=== PATIENT | female | born 1965 | race African-American/Black ===

== ENCOUNTER → 2016-06-10 10:08 | Outpatient (CLI) | payer OTHER ==
[2016-02-13 07:00] VITALS: BMI 25.6
[~2016-06-10 10:08] MED LIST: ESTRACE1 MG PO; PERCOCET 10/3251 TA1 PO; PERCOCET 5-3251 TAB PO
== END | disposition home or self-care (01) ==
LOC: D.RAD 10:08
DX: Z02.71 Encounter for disability determination (principal)

== ENCOUNTER 2016-10-05 02:25 | Emergency (ER) | payer MEDICAID ==
[2016-02-13 07:00] VITALS: BMI 25.6
[2016-10-05 03:08] LABS: BASOPHILS 0.1 % (0-2); EOSINOPHILS 0.1 % (0-7); HEMATOCRIT 36.2 % (36.0-48.0); HEMOGLOBIN 12.2 g/dL (12-16); IMMATURE GRANULOCYTES 0.1 % (0-5); LYMPHOCYTES 5.2 % (15-50); MCH 31.7 pg (26.0-34.0); MCHC 33.7 g/dL (31.0-37.0); MEAN PLATELET VOLUME 9.7 fL (7.4-10.4); NEUTROPHILS 89.5 % (40-80); PLATELET COUNT 180 10x3/uL (130-400); RBC 3.85 10x6/uL (4.00-5.40); RDW 13.8 % (11.5-14.5); WBC 7.9 10x3/uL (4.8-10.8)
[2016-10-05 03:22] LABS: ALBUMIN 3.7 g/dL (3.4-5.0); ANION GAP 14.8 mmol/L (8-16); BILIRUBIN - TOTAL 1.04 mg/dL (0.2-1.3); CALCIUM 9.2 mg/dL (8.5-10.1); CREATININE - SERUM 0.9 mg/dL (0.6-1.3); POTASSIUM - SERUM 3.8 mmol/L (3.5-5.1); PROTEIN - SERUM 7.4 g/dL (6.4-8.2)
[2016-10-05 03:25] LABS: HCG SERUM NEGATIVE (NEGATIVE)
[2016-10-05 06:11] LABS: APPEARANCE CLEAR (CLEAR); BILIRUBIN NEGATIVE (NEGATIVE); COLOR STRAW (YELLOW); GLUCOSE NEGATIVE (NEGATIVE); KETONE NEGATIVE (NEGATIVE); LEUKOCYTE ESTERASE NEGATIVE (NEGATIVE); NITRITE NEGATIVE (NEGATIVE); PROTEIN NEGATIVE (NEGATIVE); SPECIFIC GRAVITY 1.005 (1.005-1.020); UROBILINOGEN NORMAL (NORMAL)
[2016-10-05 06:12] LABS: EPITHELIAL CELLS 0-5 /hpf (0-5); RED CELLS - URINE 0-5 /hpf (0-5); WHITE CELLS - URINE 0-5 /hpf (0-5)
[2016-10-05 06:13] LABS: BACTERIA MANY /hpf (NONE SEEN)
== END 2016-10-05 09:34 | disposition home or self-care (01) ==
LOC: D.ER 02:25
PROVIDERS: Emergency Medicine
DX: R10.9 Unspecified abdominal pain (principal); F17.200 Nicotine dependence, unspecified, uncomplicated

== ENCOUNTER 2016-12-03 03:32 | Inpatient (IN) | payer MEDICAID ==
[2016-12-03] VITALS (14 sets, daily range): BP systolic 108–144; BP diastolic 59–83; BMI 27.6; BMI 27.5
[2016-12-03 04:06] LABS: APPEARANCE CLOUDY (CLEAR); BILIRUBIN NEGATIVE (NEGATIVE); COLOR YELLOW (YELLOW); GLUCOSE NEGATIVE (NEGATIVE); KETONE NEGATIVE (NEGATIVE); NITRITE NEGATIVE (NEGATIVE); PROTEIN 1+ mg/dL (NEGATIVE); UROBILINOGEN NORMAL (NORMAL)
[2016-12-03 04:06] LABS: BASOPHILS 0 % (0-2); EOSINOPHILS 0.5 % (0-7); HEMATOCRIT 35.6 % (36.0-48.0); HEMOGLOBIN 11.8 g/dL (12-16); IMMATURE GRANULOCYTES 0.2 % (0-5); LYMPHOCYTES 15.3 % (15-50); MCH 31.3 pg (26.0-34.0); MCHC 33.1 g/dL (31.0-37.0); MCV 94.4 fL (80.0-100.0); MEAN PLATELET VOLUME 9.5 fL (7.4-10.4); MONOCYTES 10.1 % (2-11); NEUTROPHILS 73.9 % (40-80); RBC 3.77 10x6/uL (4.00-5.40); RDW 13.6 % (11.5-14.5); WBC 4.1 10x3/uL (4.8-10.8)
[2016-12-03 04:07] LABS: BACTERIA MANY /hpf (NONE SEEN); EPITHELIAL CELLS 0-5 /hpf (0-5); RED CELLS - URINE 0-5 /hpf (0-5)
[2016-12-03 04:08] LABS: MUCUS <1+ /lpf (NONE SEEN)
[2016-12-03 04:08] LABS: PLATELET COUNT 241 10x3/uL (130-400)
[2016-12-03 04:25] LABS: ALBUMIN 3.5 g/dL (3.4-5.0); ALKALINE PHOSPHATASE 98 U/L (46-116); ALT (SGPT) 18 U/L (10-68); AMYLASE - SERUM 72 U/L (25-115); CALC OSMOLALITY 283 mosm/kg (275-300); CARBON DIOXIDE 26.9 mmol/L (21.0-32.0); CHLORIDE - SERUM 105 mmol/L (98-107); CREATININE - SERUM 0.8 mg/dL (0.6-1.3); GLUCOSE 130 mg/dL (74-106); LIPASE 64 U/L (73-393); MAGNESIUM - SERUM 1.8 mg/dL (1.8-2.4); POTASSIUM - SERUM 3.9 mmol/L (3.5-5.1); PROTEIN - SERUM 6.6 g/dL (6.4-8.2); SODIUM 142 mmol/L (136-145); UREA NITROGEN 11 mg/dL (7-18); eGFR NON AFRICAN AMERICAN 80 mL/min (90-120)
--- NOTE | 2016-12-03 07:45 | NUR ---
NEW ADMIT TO FLOOR FROM ER. ARRIVED VIA WHEELCHAIR WITH HOSPITAL STAFF. PT C/O ABD PAIN 10/10, PRN PAIN MEDICATION GIVEN ORDERED. BED IN LOWEST POSITION, SIDE RAILS UP X 2, CALL LIGHT WITHIN REACH.
[2016-12-03] MEDS ORDERED: CIPRO500 MG (07:51)
[2016-12-03] MEDS ORDERED: HYDROCODONE-APA1 TAB (07:51)
[2016-12-03] MEDS ORDERED: REMERON15 MG (07:51)
[2016-12-03] MEDS ORDERED: ONDANSETRON 8 MG (07:52)
[2016-12-03] MEDS ORDERED: NORCO 7.5/325 T1 TA1 (07:52)
[2016-12-03 11:11] LABS: UDS - AMPHET NEGATIVE QUAL (NEGATIVE); UDS - BARB NEGATIVE QUAL (NEGATIVE); UDS - BENZO NEGATIVE QUAL (NEGATIVE); UDS - COCAINE NEGATIVE QUAL (NEGATIVE); UDS - OPIATE NEGATIVE QUAL (NEGATIVE); UDS - PCP NEGATIVE QUAL (NEGATIVE); UDS - THC POSITIVE QUAL (NEGATIVE)
--- NOTE | 2016-12-03 11:45 | NUR ---
PT LEFT FLOOR WITH OR. PRE-OP COMPLETE.
--- NOTE | 2016-12-03 16:20 | NUR ---
PT RETURNED TO FLOOR FROM RECOVERY ROOM. C/O ABD 12/22. O2 VIA OXIMIZER AT 5L, O2 SAT 96%, B/P 136/70, PULSE 56 BPM, TEMP 97.5F, RESPIRATIONS 18. R HAND IV PATENT, INFUSING, DRSG C/D/I. ABD LAP SITES X 3 WITH MIDLINE INCISION DRSG.
--- NOTE | 2016-12-03 16:59 | NUR ---
B/L SCD'S IN PLACE
--- NOTE | 2016-12-03 17:33 | NUR ---
MANAGER PHP INITIATED ORDERED. PT VEBALIZED UNDERSTANDING OF USE.
--- NOTE | 2016-12-03 18:55 | NUR ---
PT C/O L SIDED CHEST PAIN 12/22. RAPID RESPONSE CALLED. VITALS FOLLOWS B/P 135/78, PULSE 97 BPM, O2 100% 3.5 L O2 VIA OXYMIZER.
--- NOTE | 2016-12-03 19:10 | NUR ---
CALLED DR. FUNK REGARDING RAPID RESPONSE. ORDERS RECEIVED.
--- NOTE | 2016-12-03 20:37 | NUR ---
PATIENT IS RESTING QUIETLY WITH EYES CLOSED. NO SIGNS OF DISTRESS NOTED. AROUSES EASILY TO VOCAL STIMULI. PATIENT DENIES CHEST PAIN, AND ANY OTHER PAIN AT THIS TIME. NO SIGNS OF DISTRESS NOTED. PATIENT IS RECIEVING OXYGEN VIA OXYMIZER AT 3.5L/MIN. OXYGEN SATURATION 98%. CHANGED HER TO A NASAL CANNULA, DECREASED RATE TO 2.5L/MIN. CONTINUOUS PULSE OXIMETER ON, WILL CONTINUE TO MONITOR. SCDS TO BILATERAL LEGS. BED IN LOWEST POSITION, CALL LIGHT IN REACH. BED RAILS UP X'S 2. PATIENT STATED SHE WANTS TO GO TO SLEEP, SHE DENIES NEEDS AT THIS TIME. SHE IS VERY PLEASENT AND COOPERATIVE.
[2016-12-03 20:57] LABS: HEMATOCRIT 33.9 % (36.0-48.0); HEMOGLOBIN 11.3 g/dL (12-16); MCH 31.4 pg (26.0-34.0); MCHC 33.3 g/dL (31.0-37.0); MCV 94.2 fL (80.0-100.0); MEAN PLATELET VOLUME 9.7 fL (7.4-10.4); PLATELET COUNT 260 10x3/uL (130-400); RDW 13.8 % (11.5-14.5)
[2016-12-03 21:00] LABS: CKMB 0.4 U/L (0.0-3.6); CREATINE KINASE 112 UL (21-215); WBC 2.9 10x3/uL (4.8-10.8)
[2016-12-03 21:01] LABS: TROPONIN-I < 0.017 ng/mL (0.000-0.060)
[2016-12-03 21:20] LABS: LYMPHOCYTES 15 % (15-50); MONOCYTES 3 % (2-11); NEUTROPHILS 58 % (40-80); PLATELET ESTIMATE NORMAL
[2016-12-04 00:40] VITALS: BP 133/80
--- NOTE | 2016-12-04 00:45 | NUR ---
TEMP 99.9 F. ENCOURAGED PATIENT TO USE THE INCENTIVE SPIROMETER. PATIENT VERBALIZED UNDERSTANDING.
[2016-12-04 04:56] VITALS: BP 142/77
[2016-12-04 05:01] LABS: BASOPHILS 0 % (0-2); EOSINOPHILS 0 % (0-7); HEMATOCRIT 33.3 % (36.0-48.0); HEMOGLOBIN 11.1 g/dL (12-16); IMMATURE GRANULOCYTES 0.2 % (0-5); LYMPHOCYTES 7.9 % (15-50); MCH 31.3 pg (26.0-34.0); MCHC 33.3 g/dL (31.0-37.0); MCV 93.8 fL (80.0-100.0); MEAN PLATELET VOLUME 9.7 fL (7.4-10.4); MONOCYTES 6.7 % (2-11); NEUTROPHILS 85.2 % (40-80); PLATELET COUNT 278 10x3/uL (130-400); RBC 3.55 10x6/uL (4.00-5.40); RDW 13.7 % (11.5-14.5)
[2016-12-04 05:34] LABS: ALBUMIN 2.7 g/dL (3.4-5.0); ALKALINE PHOSPHATASE 89 U/L (46-116); ALT (SGPT) 17 U/L (10-68); BILIRUBIN - TOTAL 0.48 mg/dL (0.2-1.3); CALC OSMOLALITY 270 mosm/kg (275-300); CALCIUM 8.5 mg/dL (8.5-10.1); CARBON DIOXIDE 24.8 mmol/L (21.0-32.0); CHLORIDE - SERUM 100 mmol/L (98-107); CKMB 0.2 U/L (0.0-3.6); CREATINE KINASE 167 UL (21-215); CREATININE - SERUM 0.8 mg/dL (0.6-1.3); GLUCOSE 139 mg/dL (74-106); MAGNESIUM - SERUM 1.5 mg/dL (1.8-2.4); PHOSPHOROUS 3.4 mg/dL (2.5-4.9); POTASSIUM - SERUM 4.1 mmol/L (3.5-5.1); PROTEIN - SERUM 6.5 g/dL (6.4-8.2); SODIUM 135 mmol/L (136-145); TROPONIN-I < 0.017 ng/mL (0.000-0.060); UREA NITROGEN 9 mg/dL (7-18); eGFR NON AFRICAN AMERICAN 80 mL/min (90-120)
--- NOTE | 2016-12-04 07:00 | NUR ---
REPORT RECIEVED, ASSUMED CARE OF PT. RESTING WITH EYES SHUT, EASILY AROUSED. R HAND IV INFUSING ORDERED, PATENT, DRSG CLEAN, DRY AND INTACT, BASE LOADER ORDERED. LAPSITES X 3 WITH BANDAGES C/D/I, MIDLINE DRSG IN PLACE, C/D/I. NO COMPLAINTS AT THIS TIME. BED IN LOWEST POSITION, SIDE RAILS UP X 2, CALL LIGHT WITHIN REACH.
[2016-12-04 09:39] VITALS: BP 129/79
[2016-12-04 13:06] VITALS: BP 117/65
[2016-12-04 16:59] VITALS: BP 96/60
--- NOTE | 2016-12-04 18:02 | NUR ---
MIDLINE DRSG WET WITH MINIMAL BLOODY DISCHARGE AND FROM SHOWERING. DRSG CHANGED. C/D/I.
[2016-12-04 20:00] VITALS: BP 132/78
[2016-12-05 00:08] VITALS: BP 111/61
[2016-12-05 04:00] VITALS: BP 136/93
--- NOTE | 2016-12-05 07:05 | NUR ---
PT REC'D FROM [facility]. RESTING IN BED WITH EYES CLOSED. EASILY AROUSED. AAOX4. RATING CURRENT PAIN IN ABD 09/21. FLOATING LABOR GANG SUPERVISOR BUTTON PRESSED FOR PT AT THIS TIME. BOWEL SOUNDS HYPOACTIVE X4 QUADS. X3 LAP SITES COVERED WITH BANDAIDS THAT ARE CDI. 4X4 DRESSING UNDER UMBILICUS CDI WELL. PIV TO R HAND X2 BOTH FREE OF REDNESS AND SWELLING. BED LOW, CALL LIGHT IN REACH, DENIES NEEDS. CPOC.
[2016-12-05 08:03] VITALS: BP 119/62
[2016-12-05 08:06] LABS: BASOPHILS 0 % (0-2); EOSINOPHILS 0.9 % (0-7); HEMATOCRIT 32.9 % (36.0-48.0); HEMOGLOBIN 10.9 g/dL (12-16); IMMATURE GRANULOCYTES 0.2 % (0-5); LYMPHOCYTES 6.7 % (15-50); MCH 31.6 pg (26.0-34.0); MCHC 33.1 g/dL (31.0-37.0); MCV 95.4 fL (80.0-100.0); MEAN PLATELET VOLUME 9.6 fL (7.4-10.4); MONOCYTES 8.1 % (2-11); NEUTROPHILS 84.1 % (40-80); PLATELET COUNT 246 10x3/uL (130-400); RBC 3.45 10x6/uL (4.00-5.40); RDW 13.7 % (11.5-14.5)
[2016-12-05 08:07] LABS: WBC 6.4 10x3/uL (4.8-10.8)
[2016-12-05 08:19] LABS: ALBUMIN 2.5 g/dL (3.4-5.0); ANION GAP 14.1 mmol/L (8-16); BILIRUBIN - TOTAL 0.47 mg/dL (0.2-1.3); CALCIUM 8.5 mg/dL (8.5-10.1); CARBON DIOXIDE 23.7 mmol/L (21.0-32.0); CREATININE - SERUM 0.9 mg/dL (0.6-1.3); POTASSIUM - SERUM 3.8 mmol/L (3.5-5.1); PROTEIN - SERUM 5.8 g/dL (6.4-8.2)
[2016-12-05 12:42] VITALS: BP 136/83
[2016-12-05 16:16] VITALS: BP 130/73
--- NOTE | 2016-12-05 16:45 | NUR ---
PATIENT SITTING UP IN BED WITH IV INTACT. NO COMPLAINTS AT THIS TIME. CALL LIGHTW ITHIN REACH.
[2016-12-05 18:36] VITALS: BP 128/70
--- NOTE | 2016-12-05 20:21 | NUR ---
PATIENT RESTING IN BED WITH NO VISIBLE SIGNS OF DISTRESS. MEDS ADMINISTERED AND ASSESSMENT COMPLETE. BROUGHT PT BROTH AND VIVIANA PER HER REQUEST. PT DENIES OTHER NEEDS AT THIS TIME. BED IN LOWEST POSITION AND CALL LIGHT WITHIN REACH. ENCOURAGED THE PT TO CALL IF SHE HAS OTHER NEEDS.
[2016-12-06] VITALS: BP 127/70
[2016-12-06 04:00] VITALS: BP 136/82
[2016-12-06 05:03] LABS: BASOPHILS 0.2 % (0-2); EOSINOPHILS 1.2 % (0-7); HEMATOCRIT 28.4 % (36.0-48.0); HEMOGLOBIN 9.6 g/dL (12-16); IMMATURE GRANULOCYTES 0.2 % (0-5); LYMPHOCYTES 8.8 % (15-50); MCH 31.7 pg (26.0-34.0); MCHC 33.8 g/dL (31.0-37.0); MCV 93.7 fL (80.0-100.0); MEAN PLATELET VOLUME 9.6 fL (7.4-10.4); MONOCYTES 6.3 % (2-11); NEUTROPHILS 83.3 % (40-80); PLATELET COUNT 262 10x3/uL (130-400); RBC 3.03 10x6/uL (4.00-5.40); RDW 13.6 % (11.5-14.5)
[2016-12-06 05:17] LABS: ALBUMIN 2.2 g/dL (3.4-5.0); ALKALINE PHOSPHATASE 69 U/L (46-116); ALT (SGPT) 12 U/L (10-68); CALCIUM 8.5 mg/dL (8.5-10.1); CARBON DIOXIDE 25.8 mmol/L (21.0-32.0); CHLORIDE - SERUM 105 mmol/L (98-107); CREATININE - SERUM 0.8 mg/dL (0.6-1.3); GLUCOSE 115 mg/dL (74-106); POTASSIUM - SERUM 3.4 mmol/L (3.5-5.1); PROTEIN - SERUM 5.7 g/dL (6.4-8.2); SODIUM 137 mmol/L (136-145); eGFR NON AFRICAN AMERICAN 80 mL/min (90-120)
[2016-12-06 05:20] LABS: CALC OSMOLALITY 272 mosm/kg (275-300); UREA NITROGEN 7 mg/dL (7-18)
[2016-12-06 08:35] VITALS: BP 139/77
[2016-12-06 12:51] VITALS: BP 146/78
[2016-12-06 16:06] VITALS: BP 146/71
[2016-12-06 20:00] VITALS: BP 112/68
[2016-12-07 04:00] VITALS: BP 136/76
[2016-12-07 05:15] LABS: BASOPHILS 0.2 % (0-2); EOSINOPHILS 1.6 % (0-7); HEMATOCRIT 29.3 % (36.0-48.0); HEMOGLOBIN 10.1 g/dL (12-16); IMMATURE GRANULOCYTES 0.2 % (0-5); LYMPHOCYTES 12.9 % (15-50); MCH 31.9 pg (26.0-34.0); MCHC 34.5 g/dL (31.0-37.0); MCV 92.4 fL (80.0-100.0); MEAN PLATELET VOLUME 9.8 fL (7.4-10.4); MONOCYTES 10.1 % (2-11); PLATELET COUNT 298 10x3/uL (130-400); RBC 3.17 10x6/uL (4.00-5.40); RDW 13.2 % (11.5-14.5); WBC 4.3 10x3/uL (4.8-10.8)
[2016-12-07 05:45] LABS: ALBUMIN 2.5 g/dL (3.4-5.0); ALKALINE PHOSPHATASE 78 U/L (46-116); ALT (SGPT) 13 U/L (10-68); CALC OSMOLALITY 275 mosm/kg (275-300); CALCIUM 8.8 mg/dL (8.5-10.1); CARBON DIOXIDE 24.2 mmol/L (21.0-32.0); CHLORIDE - SERUM 103 mmol/L (98-107); CREATININE - SERUM 0.8 mg/dL (0.6-1.3); GLUCOSE 112 mg/dL (74-106); MAGNESIUM - SERUM 1.6 mg/dL (1.8-2.4); POTASSIUM - SERUM 3.5 mmol/L (3.5-5.1); PROTEIN - SERUM 5.8 g/dL (6.4-8.2); SODIUM 139 mmol/L (136-145); eGFR NON AFRICAN AMERICAN 80 mL/min (90-120)
[2016-12-07 05:47] LABS: UREA NITROGEN 4 mg/dL (7-18)
--- NOTE | 2016-12-07 07:45 | NUR ---
ASSESSSMENT PER FLOW SHEET.PT WITHOUT DISTRESS.LAP SITES 4 TO ABD CDI.WITHOUT NAUSEA.DENIES NEEDS.DOCUMENTATION NURSE FOR PAIN.MONITOR FOR NEEDS.CALL LIGHT IN REACG
[2016-12-07 08:57] VITALS: BP 137/77
[2016-12-07 12:56] VITALS: BP 144/78
--- NOTE | 2016-12-07 13:55 | NUR ---
Patient Name: DREA PRATT Admission Status: ER Accout number: [id number] Admission Date: 12-03-2016 : 1965 Admission Diagnosis:INTESTINAL ADHESIONS W OBST (POSTPROCEDURAL) (POSTINFEC Attending: LAYLA FUNK Current LOS: 4 Anticipated DC Date: Planned Disposition: Home [place] Discharge Planning Comments: CM SPOKE WITH PATIENT TO ASSESS DISHCARGE PLANNING NEEDS. PATIENT STATES THAT SHE LIVES INDEPENDENTLY WITH HER MOTHER (MIKE) WHO WILL BE THE ONE TO DRIVE HER HOME. SHE STATED THAT SHE HAS ONE STEP TO ENETER IN HER HOME AND HER HOME IS SAFE TO RETURN TOO. SHE DENIES ANY HH NEEDS OR DME. CM WILL CONTINUE TO FOLLOW AND ASSIST WITH DISHCARGE PLANNING NEEDS PCP: [facility] PRATT (MOTHER) [phone] [place] Worker: Nati Cano * Is the patient Alert and Oriented? Yes 0 * How many steps to enter\exit or inside your home? 1 0 * PCP [facility] 0 * Pharmacy [facility] 0 * Preadmission Environment Home with Family 0 * ADLs Independent 0 * List name and contact numbers for known caregivers / representatives who currently or will assist patient after discharge: MIKE (MOTHER) [phone] 0 * Community resources currently utilized None 0 * Additional services required to return to the preadmission environment? No 0 * Can the patient safely return to the preadmission environment? Yes 0 * Has this patient been hospitalized within the prior 30 days at any hospital? No 0 Grand Total: 0
--- NOTE | 2016-12-07 16:09 | NUR ---
FEELING BETTER,BUT STILL COMPLAINS OF CONSTIPATION AND GAS. INSTRUCTED AMBULATION
--- NOTE | 2016-12-07 16:25 | NUR ---
AMBULAED AROUND UNIT X1,TOLERATED WELL. STILL COMPLAINS OF BLOATING. PRUNE JUICE COCKTAIL TO PT.
[2016-12-07 16:53] VITALS: BP 152/83
--- NOTE | 2016-12-07 17:22 | NUR ---
ANXIETY MEDS ORDERED FOR ANXIETY ATTACK.PT VERY ANXIOUS AND IS CRYING.
[2016-12-07 20:00] VITALS: BP 149/84
--- NOTE | 2016-12-07 20:17 | NUR ---
PATIENT RESTING IN BED WITH 8/10 PAIN. ADMINISTERED MEDS PER ORDERS AND COMPLETED ASSESSMENT. BROUGHT PT JUICE PER HER REQUEST. PATIENT DENIES OTHER NEEDS AT THIS TIME. BED IN LOWEST POSITION AND CALL LIGHT WITHIN REACH. ENCOURAGED THE PATIENT TO CALL IF SHE HAS NEES.
--- NOTE | 2016-12-07 23:21 | NUR ---
PT STATED SHE IS STILL UNABLE TO EAT SOLID FOODS WITHOUT FEELING ABDOMINAL PAIN. PT ALSO STATED THAT SHE STILL HAS BEEN UNABLE TO HAVE A BM.
--- NOTE | 2016-12-08 00:45 | NUR ---
PATIENT VOMITED APROX 400ML
[2016-12-08 04:00] VITALS: BP 146/86
--- NOTE | 2016-12-08 07:30 | NUR ---
A&O, DENIES NEEDS, NO DISTRESS NOTED, CALL LIGHT IN REACH, WILL CONTINUE TO MONITOR
--- NOTE | 2016-12-08 07:52 | HP ---
PATIENT: DREA PRATT MEDICAL RECORD: [id number] ACCOUNT: [id number] LOCATION:D.[id number] : [birth year] ADMISSION DATE: 12/03/16 HISTORY AND PHYSICAL EXAMINATION HISTORY OF PRESENT ILLNESS: A 51-year-old -[place] female presented to the Emergency Room with abdominal pain, nausea, and vomiting for a day and half. MEDICATIONS: No current medications. PAST MEDICAL HISTORY: Significant for total abdominal hysterectomy, January 2016, Dr. Brunson, [facility] for cervical cancer; also history of femur fracture, open reduction internal fixation. ALLERGIES: REPORTED TO [facility]. REVIEW OF SYSTEMS: CONSTITUTIONAL: Decreased appetite with acute onset of symptoms. No known change in weight. HEENT: No cephalgia, visual changes, tinnitus, epistaxis, or dysphagia. CARDIOVASCULAR: Denies chest pain. Denies palpitations. PULMONARY: Denies hemoptysis. Denies night sweats. GASTROINTESTINAL: Denies hematemesis, hematochezia, or melena. Does admit to diffuse abdominal pain symptoms as above, had one episode of vomiting. GENITOURINARY: Pain and burning with urination. MUSCULOSKELETAL: No acute changes. ENDOCRINE: Denies polyuria, polydipsia, or polyphagia. PHYSICAL EXAMINATION: VITAL SIGNS: Temperature 97.7, blood pressure is 143/92, heart rate 92, respirations 17, O2 sat is 96% room air. GENERAL: Alert, oriented, mild distress secondary to above. HEENT: Head: Normocephalic, atraumatic. Eyes: Pupils are equally round and reactive to light and accommodation. Extraocular muscles intact. Conjunctiva was not injected. Ears: Canals patent. TMs are intact. Nose: Nares are patent without drainage. Throat: No erythema. No exudates. NECK: Supple. No lymphadenopathy. No JVD. HEART: Regular rate and rhythm. No S3 or S4. No rub. LUNGS: Clear to auscultation bilaterally. Breathing is nonlabored. ABDOMEN: Mild distention. Diffuse tenderness. No rebound. No guarding. No palpable mass. EXTREMITIES: Present times 4. No edema. NEUROLOGIC: No focal deficits. SKIN: Warm and dry. No rash. RADIOLOGIC DATA: CT preliminary, small bowel obstruction. The patient had a CT in the ER on 10/05/2016, which showed unusual course of small bowel in the pelvis suggestive of adhesions without obstruction at that time. ASSESSMENT AND PLAN: 1. Small bowel obstruction likely secondary to adhesions from previous hysterectomy. Surgery consulted. The patient is n.p.o. 2. Urinary tract infection. Urine culture pending. Empiric Rocephin started in the Emergency Room. Supportive care. HISTORY AND PHYSICAL [id number] DREA PRATT TRANSINT:[id number] Voice Confirmation ID: [id number] DOCUMENT ID: [id number] LAYLA FUNK DO at 0752 CC: [id number] DICTATION DATE: 12/03/16 0746 B2B ACCOUNT EXECUTIVE: 12/03/16 1145 ADM IN [id number] [place] [address]
[2016-12-08 08:29] VITALS: BP 121/69
[2016-12-08 11:30] VITALS: BP 124/66
--- NOTE | 2016-12-08 12:25 | NUR ---
NUTRITION F/U CHART REVIEWED. REG DIET BUT NO PO INTAKE @ BREAKFAST. MAY BENEFIT FROM PROCALAMINE AND INTRALIPIDS IF UNABLE TO TOLERATE PO IN 24 [address] FOLLOWING
--- NOTE | 2016-12-08 14:30 | NUR ---
REPORT RECIEVED ASSUMED CARE. PATIENT IN BED WITH EYES CLOSED RESTING QUIETLY AT THIS TIME. IV INTACT. CALL LIGHT WITHIN REACH.
--- NOTE | 2016-12-08 15:05 | NUR ---
PATIENT UP AMBULATING IN CANO.
[2016-12-08 16:27] VITALS: BP 128/66
--- NOTE | 2016-12-08 18:45 | NUR ---
PATIENT IN BED WITH IV INTACT. NO COMPLAINTS CALL LIGHT WITHIN REACH.
--- NOTE | 2016-12-08 20:50 | NUR ---
PATIENT RESTING IN BED AND REQUESTED PAIN MEDS WHEN DUE. PATIENT DENIES OTHER NEEDS AT THIS TIME. BED IN LOWEST POSITION AND CALL LIGHT WITHIN REACH. ENCOURAGED THE PATIENT TO CALL IF SHE HAS NEEDS.
[2016-12-09] VITALS: BP 142/78
[2016-12-09 04:00] VITALS: BP 122/71
[2016-12-09 05:10] LABS: BASOPHILS 0.2 % (0-2); EOSINOPHILS 1.9 % (0-7); HEMATOCRIT 30.9 % (36.0-48.0); HEMOGLOBIN 10.6 g/dL (12-16); IMMATURE GRANULOCYTES 0.6 % (0-5); LYMPHOCYTES 13.8 % (15-50); MCH 31.6 pg (26.0-34.0); MCHC 34.3 g/dL (31.0-37.0); MCV 92.2 fL (80.0-100.0); MEAN PLATELET VOLUME 9.5 fL (7.4-10.4); MONOCYTES 10.7 % (2-11); NEUTROPHILS 72.8 % (40-80); PLATELET COUNT 314 10x3/uL (130-400); RBC 3.35 10x6/uL (4.00-5.40); RDW 13.2 % (11.5-14.5); WBC 5.1 10x3/uL (4.8-10.8)
[2016-12-09 05:44] LABS: ALBUMIN 2.4 g/dL (3.4-5.0); ALKALINE PHOSPHATASE 70 U/L (46-116); ALT (SGPT) 14 U/L (10-68); CALCIUM 8.7 mg/dL (8.5-10.1); CARBON DIOXIDE 27.1 mmol/L (21.0-32.0); CHLORIDE - SERUM 101 mmol/L (98-107); CREATININE - SERUM 0.7 mg/dL (0.6-1.3); GLUCOSE 122 mg/dL (74-106); MAGNESIUM - SERUM 1.8 mg/dL (1.8-2.4); PHOSPHOROUS 3.3 mg/dL (2.5-4.9); POTASSIUM - SERUM 3.3 mmol/L (3.5-5.1); PROTEIN - SERUM 6.1 g/dL (6.4-8.2); SODIUM 136 mmol/L (136-145); eGFR NON AFRICAN AMERICAN > 90 mL/min (90-120)
[2016-12-09 05:45] LABS: CALC OSMOLALITY 270 mosm/kg (275-300); UREA NITROGEN 6 mg/dL (7-18)
--- NOTE | 2016-12-09 07:45 | NUR ---
PT RESTING IN BED, NO COMPLAINTS AT THIS TIME. IV INFUSING ORDERED. NO SIGNS OF ACUTE DISTRESS.
[2016-12-09 07:55] VITALS: BP 108/67
[2016-12-09 12:19] VITALS: BP 153/75
[2016-12-09 15:59] VITALS: BP 125/78
[2016-12-09 20:00] VITALS: BP 152/81
--- NOTE | 2016-12-09 20:02 | NUR ---
AWAKE,ALERT.DILAUDID GIVEN IV FOR ABD PAIN 09/21. YAZMIN INTACT TO ABD INCISION WIHTOUT DRAINAGE NOTED. CL IN REACH.
[2016-12-10] VITALS: BP 120/83
--- NOTE | 2016-12-10 01:50 | NUR ---
RESTING QUIETLY. NO DISTRESS NOTED.
--- NOTE | 2016-12-10 02:00 | NUR ---
PT IN BED WITH NO DISTRESS. RESPIRATIONS EVEN AND UNLABORED. SIDE RAILS X 2. BED IS LOW. CALL LIGHT IS IN REACH.
[2016-12-10 04:00] VITALS: BP 138/86
[2016-12-10 05:44] LABS: BASOPHILS 0.2 % (0-2); EOSINOPHILS 1.3 % (0-7); HEMATOCRIT 30.5 % (36.0-48.0); HEMOGLOBIN 10.3 g/dL (12-16); IMMATURE GRANULOCYTES 0.8 % (0-5); LYMPHOCYTES 14.9 % (15-50); MCH 31.3 pg (26.0-34.0); MCHC 33.8 g/dL (31.0-37.0); MCV 92.7 fL (80.0-100.0); MEAN PLATELET VOLUME 9.8 fL (7.4-10.4); MONOCYTES 12.8 % (2-11); PLATELET COUNT 346 10x3/uL (130-400); RBC 3.29 10x6/uL (4.00-5.40); RDW 13.1 % (11.5-14.5); WBC 5.3 10x3/uL (4.8-10.8)
[2016-12-10 05:47] LABS: CALC OSMOLALITY 273 mosm/kg (275-300); CALCIUM 8.6 mg/dL (8.5-10.1); CARBON DIOXIDE 26.4 mmol/L (21.0-32.0); CHLORIDE - SERUM 101 mmol/L (98-107); CREATININE - SERUM 0.7 mg/dL (0.6-1.3); GLUCOSE 118 mg/dL (74-106); MAGNESIUM - SERUM 1.9 mg/dL (1.8-2.4); SODIUM 138 mmol/L (136-145); UREA NITROGEN 5 mg/dL (7-18); eGFR NON AFRICAN AMERICAN > 90 mL/min (90-120)
[2016-12-10 05:51] LABS: POTASSIUM - SERUM 4.2 mmol/L (3.5-5.1)
--- NOTE | 2016-12-10 06:00 | NUR ---
AROUSES EASILY. NO COMPLAITNS. CL IN REACH
--- NOTE | 2016-12-10 07:00 | NUR ---
PATIENT IN BED WITH EYES CLOSED RESTING QUETLY AT THIS TIME. IV INTACT. CALL LIGHT WITHIN REACH.
[2016-12-10] MEDS ORDERED: HYDROCODON-ACE1 EAC7 PO (07:38)
[2016-12-10 07:57] VITALS: BP 137/87
--- NOTE | 2016-12-10 08:00 | NUR ---
ASSESSMENT COMPLETE, VS STABLE. IV INTACT. NO COMPLAINTS. PATIENT UP TO AMBULATE AT THIS TIME. CALL LIGHT WITHIN REACH.
--- NOTE | 2016-12-10 10:00 | NUR ---
PATIENT RECIEVED DISCHARGE INSTRUCTIONS. VERBALIZED UNDERSTANDING. NO QUESTIONS AT THIS TIME. IV REMOVED WITH CATH TIP INTACT. PRESCRIPTION GIVEN TO PATIENT. NO QUESTIONS AT THIS TIME.
--- NOTE | 2016-12-10 10:20 | NUR ---
PATIENT AMBULATED OUT OF HOSPITAL WITH FAMILY AND PERSONAL BELONGINGS TO PRIVATE VEHICLE. REFUSED WC AT THIS TIME.
--- NOTE | 2016-12-10 18:04 | DS ---
PATIENT:DREA PRATT :65 MEDICAL RECORD: [id number] DISCHARGE SUMMARY ADMISSION DATE: 12/03/16 DISCHARGE DATE: 12/10/16 DATE OF ADMISSION: 12/03/2016 DATE OF DISCHARGE: 12/10/2016 ADMISSION DIAGNOSES: Small-bowel obstruction, urinary tract infection, prior history of cervical cancer. DISCHARGE DIAGNOSES: Small-bowel obstruction, resolved; small bowel resection; adhesiolysis. CONSULTS: Dr. Martinez, general surgery. HOSPITAL COURSE: The patient was admitted to the Emergency Room with abdominal pain and distention. CT showed small-bowel obstruction. The patient was taken to surgery with a prior hysterectomy secondary to cervical cancer, had extensive adhesions, required resection of small bowel and adhesiolysis. The patient had a persistent ileus. He is now having bowel movements, passing gas, anxious to go home. The patient is tolerating regular diet, ambulating independently and has had bowel movements. He is discharged home in significantly improved condition. PHYSICAL EXAMINATION: VITAL SIGNS ON DISCHARGE: Temp 98.8, blood pressure 138/86, heart rate 89, respirations 19, O2 sats 99% on room air. GENERAL: Alert, oriented, no acute distress. HEART: Regular rate and rhythm. LUNGS: Clear. ABDOMEN: Soft, bowel sounds are positive. EXTREMITIES: Present times 4, no edema. NEUROLOGIC: Intact. SKIN: Warm and dry. No rash. LABORATORY DATA: CBC on discharge, white count 5.3, hemoglobin 10.3, hematocrit 30.5, platelets 346. Chemistry; sodium 138, potassium 4.2, chloride 101, bicarb 26.4, phosphorus is 4.0. Magnesium 1.9. The patient will follow up with me in the clinic in 2 weeks. Follow up with Dr. Martinez, surgery, as scheduled. Diet as tolerated, increase activity. Weaning off pain medication just will slow gastrointestinal motility. TRANSINT:[id number] Voice Confirmation ID: [id number] DOCUMENT ID: [id number] LAYLA FUNK DO at 1804 CC: [id number] DICTATION DATE: 12/10/16 0744 PIPE FITTER FIRE SPRINKLER SYSTEMS: 12/10/16 1324 DIS IN 12/10/16 [place] [address]
--- NOTE | 2016-12-11 10:30 | OP ---
PATIENT NAME: DREA PRATT MEDICAL RECORD: [id number] :65 LOCATION:D.[facility] ADMISSION DATE:12/03/16 SURGEON: RAJIV COLINDRES MD DATE OF OPERATION: 12/03/2016 PREOPERATIVE DIAGNOSES: 1. Acute small bowel obstruction. 2. History of cervical cancer, status post recent total abdominal hysterectomy. 3. Gastroesophageal reflux disease. 4. Tobacco dependence syndrome. POSTOPERATIVE DIAGNOSES: 1. Acute small bowel obstruction. 2. History of cervical cancer, status post recent total abdominal hysterectomy. 3. Gastroesophageal reflux disease. 4. Tobacco dependence syndrome. PROCEDURES: 1. Laparoscopic lysis of adhesions. 2. Small bowel resection. SURGEON: Rajiv Colindres MD REPORT OF PROCEDURE: The patient's abdomen was prepped and draped in sterile fashion. A Veress needle was inserted in the left upper quadrant and the abdomen was insufflated. A 5-mm trocar was then placed in the left lateral abdomen under direct visualization. I could see the Veress needle and there was no sign of any injury to bowel or surrounding structures. There were noted to be significant loops of distended small bowel present. A 5-mm trocar was placed in the midline just above the umbilicus and a final 5-mm trocar was placed in the left lower quadrant. As we looked into the pelvis, there was noted to be dense adhesions present. As we began our dissection, these were not your typical postoperative adhesions. These were very thick and inflammatory type adhesions. There was also noted to be ascitic fluid in the pelvis along with some mucousy material. There were some cystic lesions present around the small bowel in this area. We eventually were able to dissect the small bowel free from its pelvic attachments. In order to do this, we had to cut through some of this firm tissue that was coming up against the pelvic wall. There was no full thickness injury to the small bowel during this portion of the case, but this section of small bowel was beaten up pretty well with the dissection. The remainder of the small bowel and the abdomen looked normal. I inspected the pelvis once all the adhesions were gone, and the rectum appeared to be normal with no signs of any compression or lesions. There was no sign of any residual tissue from the uterus or ovaries visible. At this point, an opening was made in the midline just below the umbilicus and an Silvano retractor was inserted. This injured portion of small bowel was elevated through the wound protector and was transected using 60 blue load JACE staplers. The mesentery was taken down with sequential clamp and tie technique using 3-0 silks. There was noted to be some enlarged lymph nodes in this area and they were included in the specimen. The section of small bowel was in the distal ileum approximately 10-15 cm from the terminal ileum. A [id number] anastomosis was then performed using a 60 blue load JACE stapler, and the enterotomies were closed with a 30 blue load TA stapler. We then oversewed the staple line using lemberted 3-0 silks and placed the anastomosis back into the abdominal cavity. The omentum was placed over top of this anastomosis. We then irrigated out the abdomen thoroughly with normal OPERATIVE REPORT [id number] DREA PRATT saline and assured there was no sign of any surgical bleeding. At this point, the midline fascia was closed with running #1 looped PDS times 2. The subcutaneous tissues were then irrigated out with normal saline and they were infused with a total of 10 mL of 0.25% Marcaine with epinephrine. The skin incisions were all closed with clementine and dressed appropriately. COMPLICATIONS: None. CONDITION: Stable. ANESTHESIA: General endotracheal and local. BLOOD LOSS: Minimal. TRANSINT:[id number] Voice Confirmation ID: [id number] DOCUMENT ID: [id number] RAJIV COLINDRES MD at 1030 CC: LAYLA FUNK DO [id number] DICTATION DATE: 12/03/16 1456 CAMERA MAKER: 12/03/16 1631 DIS IN 12/10/16 [facility] [address] [place] [address]
== END 2016-12-10 10:20 | disposition home or self-care (01) | DRG 330 ==
LOC: D.ER 03:32 → D.MS 07:06
PROVIDERS: Emergency Medicine; Family Medicine; Surgery; ADMIT Family Medicine
PROC: 0DB84ZZ Excision of Small Intestine, Percutaneous Endoscopic Approach (ICD-10-PCS; principal; 2016-12-03 11:45)
PROC: 0DNB4ZZ Release Ileum, Percutaneous Endoscopic Approach (ICD-10-PCS; 2016-12-03 11:45)
PROC: 0DNW4ZZ Release Peritoneum, Percutaneous Endoscopic Approach (ICD-10-PCS; 2016-12-03 11:45)
DX: K56.5 Intestinal adhesions [bands] with obstruction (postinfection) (principal); N39.0 Urinary tract infection, site not specified; K21.9 Gastro-esophageal reflux disease without esophagitis; Z85.41 Personal history of malignant neoplasm of cervix uteri; F17.200 Nicotine dependence, unspecified, uncomplicated; F41.9 Anxiety disorder, unspecified; K56.7 Ileus, unspecified

== ENCOUNTER 2017-03-28 20:09 | Emergency (ER) | payer MEDICAID ==
[2016-12-03 12:16] VITALS: BMI 27.5
[~2017-03-28 20:09] MED LIST changes: +CIPRO500 MG; +HYDROCODON-ACE1 EAC7 PO; +HYDROCODONE-APA1 TAB; +NORCO 7.5/325 T1 TA1; +ONDANSETRON 8 MG; +REMERON15 MG
[2017-03-28 20:42] LABS: APPEARANCE CLOUDY (CLEAR); BILIRUBIN NEGATIVE (NEGATIVE); COLOR YELLOW (YELLOW); GLUCOSE NEGATIVE (NEGATIVE); KETONE NEGATIVE (NEGATIVE); NITRITE POSITIVE (NEGATIVE); PROTEIN NEGATIVE (NEGATIVE); UROBILINOGEN NORMAL (NORMAL)
[2017-03-28 20:45] LABS: EPITHELIAL CELLS 0-5 /hpf (0-5); RED CELLS - URINE RARE /hpf (0-5)
[2017-03-28 20:46] LABS: BACTERIA MANY /hpf (NONE SEEN)
== END 2017-03-28 21:10 | disposition home or self-care (01) ==
LOC: D.ER 20:09
PROVIDERS: Family Medicine
DX: N39.0 Urinary tract infection, site not specified (principal)

== ENCOUNTER 2017-03-29 06:12 | Emergency (ER) | payer MEDICAID ==
[2016-12-03 12:16] VITALS: BMI 27.5
[2017-03-29 06:52] LABS: BASOPHILS 0.2 % (0-2); EOSINOPHILS 1.2 % (0-7); HEMOGLOBIN 12.5 g/dL (12-16); IMMATURE GRANULOCYTES 0.2 % (0-5); LYMPHOCYTES 19.5 % (15-50); MCH 31.3 pg (26.0-34.0); MCHC 32.9 g/dL (31.0-37.0); MCV 95.2 fL (80.0-100.0); MONOCYTES 8.4 % (2-11); NEUTROPHILS 70.5 % (40-80); RBC 3.99 10x6/uL (4.00-5.40); RDW 13.7 % (11.5-14.5)
[2017-03-29 06:58] LABS: PLATELET COUNT 205 10x3/uL (130-400)
[2017-03-29 07:16] LABS: ALBUMIN 3.6 g/dL (3.4-5.0); ALKALINE PHOSPHATASE 101 U/L (46-116); ALT (SGPT) 25 U/L (10-68); AMYLASE - SERUM 209 U/L (25-115); CALC OSMOLALITY 285 mosm/kg (275-300); CARBON DIOXIDE 28.5 mmol/L (21.0-32.0); CHLORIDE - SERUM 107 mmol/L (98-107); CREATININE - SERUM 1.1 mg/dL (0.6-1.3); GLUCOSE 100 mg/dL (74-106); LIPASE 779 U/L (73-393); POTASSIUM - SERUM 3.6 mmol/L (3.5-5.1); SODIUM 144 mmol/L (136-145); TROPONIN-I < 0.017 ng/mL (0.000-0.060); UREA NITROGEN 10 mg/dL (7-18); eGFR NON AFRICAN AMERICAN 55 mL/min (90-120)
[2017-03-29 07:47] LABS: APPEARANCE HAZY (CLEAR); BACTERIA MANY /hpf (NONE SEEN); BILIRUBIN NEGATIVE (NEGATIVE); COLOR YELLOW (YELLOW); GLUCOSE NEGATIVE (NEGATIVE); KETONE NEGATIVE (NEGATIVE); MUCUS <1+ /lpf (NONE SEEN); NITRITE POSITIVE (NEGATIVE); PROTEIN NEGATIVE (NEGATIVE); RED CELLS - URINE RARE /hpf (0-5); UDS - AMPHET NEGATIVE QUAL (NEGATIVE); UDS - BARB NEGATIVE QUAL (NEGATIVE); UDS - BENZO NEGATIVE QUAL (NEGATIVE); UDS - COCAINE POSITIVE QUAL (NEGATIVE); UDS - OPIATE POSITIVE QUAL (NEGATIVE); UDS - PCP NEGATIVE QUAL (NEGATIVE); UDS - THC POSITIVE QUAL (NEGATIVE); UROBILINOGEN NORMAL (NORMAL); WHITE CELLS - URINE 0-5 /hpf (0-5)
== END 2017-03-29 09:27 | disposition home or self-care (01) ==
LOC: D.ER 06:12
PROVIDERS: Family Medicine
DX: M62.830 Muscle spasm of back (principal); S39.011A Strain of muscle, fascia and tendon of abdomen, initial encounter; X58.XXXA Exposure to other specified factors, initial encounter; Y93.89 Activity, other specified; Y92.89 Other specified places as the place of occurrence of the external cause

== ENCOUNTER 2017-07-31 10:28 | Emergency (ER) | payer MEDICAID ==
[2016-12-03 12:16] VITALS: BMI 27.5
[2017-07-31 11:09] LABS: APPEARANCE CLEAR (CLEAR); BILIRUBIN NEGATIVE (NEGATIVE); COLOR YELLOW (YELLOW); GLUCOSE NEGATIVE (NEGATIVE); KETONE NEGATIVE (NEGATIVE); NITRITE NEGATIVE (NEGATIVE); PROTEIN NEGATIVE (NEGATIVE); UROBILINOGEN NORMAL (NORMAL)
== END 2017-07-31 11:38 | disposition home or self-care (01) ==
LOC: D.ER 10:28
PROVIDERS: Emergency Medicine
DX: E11.65 Type 2 diabetes mellitus with hyperglycemia (principal); Z79.4 Long term (current) use of insulin; E86.0 Dehydration; R19.7 Diarrhea, unspecified

== ENCOUNTER → 2017-08-16 14:46 | Outpatient (CLI) | payer MEDICAID ==
[2016-12-03 12:16] VITALS: BMI 27.5
[~2017-08-16 14:46] MED LIST changes: +HYDROCODON-ACE1 EAC6 PO
== END | disposition home or self-care (01) ==
LOC: D.MRI 14:46
DX: M54.2 Cervicalgia (principal)

== ENCOUNTER 2017-09-01 12:20 | Emergency (ER) | payer MEDICAID ==
[~2017-09-01] VITALS: Ht 170.2 cm; Wt 81.4 kg
[~2017-09-01 12:20] MED LIST changes: -HYDROCODON-ACE1 EAC6 PO
[2017-09-01 12:45] VITALS: Ht 170.2 cm; Wt 81.4 kg
[2017-09-01] MEDS ORDERED: HYDROCODON-ACE1 EAC6 PO (15:43)
[2017-09-01 16:09] VITALS: BP 102/068
== END 2017-09-01 16:16 | disposition home or self-care (01) ==
LOC: D.ER 12:20
DX: M54.5 Low back pain (principal); M54.31 Sciatica, right side

== ENCOUNTER → 2017-10-18 11:01 | Outpatient (CLI) | payer OTHER ==
[2017-09-01 12:45] VITALS: BMI 28.1
[~2017-10-18 11:01] MED LIST changes: +HYDROCODON-ACE1 EAC6 PO
== END | disposition home or self-care (01) ==
LOC: D.RAD 11:01
DX: Z02.71 Encounter for disability determination (principal)

== ENCOUNTER 2017-10-18 11:40 | Emergency (ER) | payer BC ==
[2017-09-01 12:45] VITALS: Ht 170.2 cm; Wt 79.4 kg
[~2017-10-18] VITALS: Ht 170.2 cm; Wt 79.4 kg
[2017-10-18 13:49] VITALS: BP 125/68
== END 2017-10-18 13:50 | disposition home or self-care (01) ==
LOC: D.ER 11:40
DX: M54.16 Radiculopathy, lumbar region (principal); Z85.41 Personal history of malignant neoplasm of cervix uteri

== ENCOUNTER → 2017-12-02 14:03 | Outpatient (CLI) | payer MEDICAID ==
[2017-10-18 11:51] VITALS: BMI 28.1
== END | disposition home or self-care (01) ==
LOC: D.MRI 14:00
DX: M54.16 Radiculopathy, lumbar region (principal)

== ENCOUNTER 2018-04-20 08:49 | Emergency (ER) | payer MEDICAID ==
[~2018-04-20] VITALS: Ht 170.2 cm; Wt 80.9 kg
[2018-04-20 08:58] VITALS: Ht 170.2 cm; Wt 80.9 kg
[2018-04-20 09:38] LABS: BASOPHILS 0.3 % (0-2); EOSINOPHILS 1.1 % (0-7); HEMATOCRIT 36.3 % (36.0-48.0); HEMOGLOBIN 12.2 g/dL (12-16); IMMATURE GRANULOCYTES 0.3 % (0-5); LYMPHOCYTES 17.5 % (15-50); MCH 32.5 pg (26.0-34.0); MCHC 33.6 g/dL (31.0-37.0); MCV 96.8 fL (80.0-100.0); MEAN PLATELET VOLUME 9.8 fL (7.4-10.4); MONOCYTES 9.1 % (2-11); NEUTROPHILS 71.7 % (40-80); PLATELET COUNT 210 10x3/uL (130-400); RBC 3.75 10x6/uL (4.00-5.40); RDW 13.2 % (11.5-14.5); WBC 6.5 10x3/uL (4.8-10.8)
[2018-04-20 09:41] LABS: APPEARANCE CLOUDY (CLEAR); BACTERIA FEW /hpf (NONE SEEN); BILIRUBIN NEGATIVE (NEGATIVE); COLOR DK YELLOW (YELLOW); EPITHELIAL CELLS 0-5 /hpf (0-5); GLUCOSE NEGATIVE (NEGATIVE); KETONE NEGATIVE (NEGATIVE); NITRITE NEGATIVE (NEGATIVE); PROTEIN NEGATIVE (NEGATIVE); RED CELLS - URINE 0-5 /hpf (0-5); UROBILINOGEN NORMAL (NORMAL)
[2018-04-20 09:55] LABS: ALBUMIN 3.4 g/dL (3.4-5.0); ANION GAP 19.4 mmol/L (8-16); BILIRUBIN - TOTAL 0.3 mg/dL (0.2-1.3); CALCIUM 8.2 mg/dL (8.5-10.1); CARBON DIOXIDE 19.9 mmol/L (21.0-32.0); POTASSIUM - SERUM 4.3 mmol/L (3.5-5.1); PROTEIN - SERUM 6.5 g/dL (6.4-8.2)
[2018-04-20] MEDS ORDERED: SULFAMETHOXAZOL1 TA3 PO (11:37)
[2018-04-20 11:50] VITALS: BP 107/53
[2018-04-24 12:08] LABS: CHLAMYDIA TRACHOMATIS, NAA Negative (Negative)
== END 2018-04-20 11:48 | disposition home or self-care (01) ==
LOC: D.ER 08:49
PROVIDERS: Emergency Medicine
DX: N39.0 Urinary tract infection, site not specified (principal); R35.0 Frequency of micturition

== ENCOUNTER 2019-02-15 15:37 | Emergency (ER) | payer MEDICAID ==
[~2019-02-15] VITALS: Ht 170.2 cm; Wt 80.0 kg
[~2019-02-15 15:37] MED LIST changes: +SULFAMETHOXAZOL1 TA3 PO
[2019-02-15 15:40] VITALS: BP 150/67; Ht 170.2 cm; Wt 80.0 kg
[2019-02-15] MEDS ORDERED: SMZ-TMP DS 800-1 TAB PO (17:01)
[2019-02-15] MEDS ORDERED: KEFLEX500 MG PO (17:01)
== END 2019-02-15 17:06 | disposition home or self-care (01) ==
LOC: D.ER 15:37
DX: L02.413 Cutaneous abscess of right upper limb (principal); M54.30 Sciatica, unspecified side; Z85.41 Personal history of malignant neoplasm of cervix uteri